=== PATIENT | male | born 1990 | race Caucasian/White ===

== ENCOUNTER 2019-05-30 11:43 | Emergency (ER) | payer MEDICAID ==
[2019-05-30] MEDS: DICYCLOMINE 10 MG CAP PO (12:51)
[2019-05-30] MEDS: LIDOCAINE/MYLANTA 40 ML BTL PO (12:51)
== END 2019-05-30 13:11 | disposition home or self-care (01) ==
LOC: FTE 11:43
DX: A09 Infectious gastroenteritis and colitis, unspecified (principal); F17.210 Nicotine dependence, cigarettes, uncomplicated
CPT/HCPCS: 99283; Z7502